=== PATIENT | female | born 1980 | race African-American/Black ===

== ENCOUNTER 2025-07-08 16:39 | Emergency (ER) | payer OTHER ==
[~2025-07-08] VITALS: Ht 160 cm; Wt 105.7 kg
[~2025-07-08 16:39] MED LIST: CORICIDIN HBP1 EACH PO; LOSARTAN-HCTZ1 EACH PO
[2025-07-08] MEDS ORDERED: PAXLOVID 150-11 EAC2 PO (17:12)
[2025-07-08] MEDS ORDERED: BROMFED DM COU118 ML PO (17:12)
[2025-07-08] MEDS ORDERED: PAXLOVID 300-11 EAC1 PO (17:44)
[2025-07-08] MEDS ORDERED: IBUPROFEN800 MG PO (17:46)
[2025-07-08] MEDS ORDERED: ACETAMINOPHEN-1 EAC4 PO (17:46)
[2025-07-08 17:58] VITALS: PULSE 95; RESP 18; TEMP 99; O2SAT 98
[2025-07-08] MEDS: ACETAMINOPHEN 325 MG TAB PO ONE (18:00)
[2025-07-08] MEDS: IBUPROFEN 600 MG TAB PO STA (18:01)
== END 2025-07-08 17:58 | disposition home or self-care (01) ==
LOC: FSED 16:49
DX: R06.02 Shortness of breath (principal); U07.1 COVID-19; R05.9 Cough, unspecified; J06.9 Acute upper respiratory infection, unspecified; I10 Essential (primary) hypertension; Z98.84 Bariatric surgery status
CPT/HCPCS: 0223U; 71046; 87400; 99283